=== PATIENT | female | born 1965 | race Two or more races ===

== ENCOUNTER 2016-08-29 15:48 | Emergency (ER) | payer OTHER ==
[~2016-08-29] VITALS: Ht 167.6 cm; Wt 100.0 kg
[~2016-08-29 15:48] MED LIST: LEVO100 PO
[2016-08-29] MEDS ORDERED: NAPR500T6 PO (16:00)
[2016-08-29] MEDS ORDERED: IBUP200C8 PO (16:00)
[2016-08-29 17:45] VITALS: BP 115/62
[2016-08-29] MEDS ORDERED: KETOROLAC TROMETHAMINE 60 MG/2 ML VIAL IM ONE (17:45)
== END 2016-08-29 18:07 | disposition home or self-care (01) ==
LOC: EMS 15:49
DX: M54.42 Lumbago with sciatica, left side (principal); G89.29 Other chronic pain; E03.9 Hypothyroidism, unspecified
CPT/HCPCS: 96372; 99283; J1885